=== PATIENT | male | born 2000 | race Caucasian/White ===

== ENCOUNTER 2019-11-22 15:50 | Emergency (ER) | payer OTHER ==
[~2019-11-22] VITALS: Ht 167.6 cm; Wt 74.8 kg
[2019-11-22] MEDS ORDERED: TAMIFLU75 MG PO (17:01)
[2019-11-22] MEDS ORDERED: TESSALON PERLE100 MG PO (17:01)
[2019-11-22 17:58] VITALS: BP 128/75
== END 2019-11-22 18:00 | disposition home or self-care (01) ==
LOC: ER 15:50
DX: J11.1 Influenza due to unidentified influenza virus with other respiratory manifestations (principal); R05 Cough